=== PATIENT | female | born 1955 | race Two or more races ===

== ENCOUNTER 2021-09-05 12:20 | Emergency (ER) | payer BC, MEDICAID ==
[~2021-09-05] VITALS: Ht 165.1 cm; Wt 79.0 kg
[2021-09-05 13:15] LABS: BASOPHILS % (AUTO) 0.4 % (0-1); EOSINOPHILS % (AUTO) 0.5 % (0-6); HEMOGLOBIN 12.3 g/dl (12.0-16.0); LYMPHOCYTES % (AUTO) 24.5 % (21-51); MEAN CORPUSCULAR HEMOGLOBIN 27.2 PG (27.0-31.0); MEAN CORPUSCULAR HGB CONC 31.7 g/dL (33.0-36.5); MEAN CORPUSCULAR VOLUME 85.9 FL (78-98); MEAN PLATELET VOLUME 10.4 FL (7.4-10.4); MONOCYTES # (AUTO) 0.5 X10'3 (0-0.9); MONOCYTES % (AUTO) 5.4 % (2-12); NEUTROPHILS # (AUTO) 5.8 X10'3 (1.8-7.7); NEUTROPHILS % (AUTO) 69.2 % (42-75); PLATELET COUNT 282 X10'3 (140-440); RED BLOOD COUNT 4.54 X10'6 (4.20-5.60); WHITE BLOOD COUNT 8.3 X10'3 (4.5-11.0)
[2021-09-05 13:28] LABS: PARTIAL THROMBOPLASTIN TIME 23 SECONDS (22-32)
[2021-09-05 13:31] LABS: ALANINE AMINOTRANSFERASE 17 U/L (12-78); ALBUMIN 3.8 G/DL (3.4-5.0); ALBUMIN/GLOBULIN RATIO 0.9 (1.1-1.5); ALKALINE PHOSPHATASE 126 IU/L (46-116); ANION GAP 13 (8-16); ASPARTATE AMINO TRANSFERASE 18 U/L (10-37); BILIRUBIN,TOTAL 0.2 MG/DL (0.1-1.0); BLOOD UREA NITROGEN 14 MG/DL (7-18); BUN/CREATININE RATIO 16.7 (6.6-38.0); CALCIUM 9.5 MG/DL (8.5-10.1); CHLORIDE 105 MMOL/L (99-107); CREATININE 0.84 MG/DL (0.40-0.90); GLUCOSE 110 MG/DL (70-104); POTASSIUM 4.6 MMOL/L (3.5-5.1); SODIUM 139 MMOL/L (135-145); TOTAL CARBON DIOXIDE 21.2 MMOL/L (24-32); TOTAL PROTEIN 7.9 G/DL (6.4-8.2); eGFR 68 ML/MIN
--- NOTE | 2021-09-05 19:30 | NUR ---
PT ROOMED TO FAST TRACK 1. PT MOHAWK SPEAKING. SHE NOTES HEADACHE THAT STARTED 3 DAYS AGO. SOME NUMBNESS TO LEFT HAND THAT STARTED TODAY. NO OTHER COMPLAINTS AT PRESENT.
--- NOTE | 2021-09-05 20:32 | NUR ---
PT PROVIDED A SANDWICH SHE IS DIABETIC AND HASN'T HAD ANYTHING TO EAT SINCE SHE FIRST ARRIVED,.
[2021-09-05] MEDS ORDERED: acetaminophen 325mg tablet PO ONE (21:30)
--- NOTE | 2021-09-05 21:45 | NUR ---
PA AT BEDSIDE. PT MEDICATED W/ TYLENOL FOR PITTMAN
[2021-09-05] MEDS ORDERED: proCHLORperazine 10 MG/2 ml inj IM ONE (21:55)
[2021-09-05] MEDS ORDERED: ketorolac tromethamine 15mg/ml inj. IM ONE (21:55)
[2021-09-05] MEDS ORDERED: diphenhydrAMINE 50 mg/ml inj IM ONE (21:55)
[2021-09-05] MEDS ORDERED: ketorolac trometh. 30mg/ml inj. IM ONE (22:05)
[2021-09-05 22:55] VITALS: BP 158/73
== END 2021-09-05 22:58 | disposition home or self-care (01) ==
LOC: ER 12:21
DX: R51.9 Headache, unspecified (principal); R20.2 Paresthesia of skin; I10 Essential (primary) hypertension
CPT/HCPCS: 36415; 70450; 71045; 80053; 82948; 84484; 85025; 85610; 85730; 93005; 96372; 99285; J0780; J1200; J1885